=== PATIENT | female | born 1965 | race Caucasian/White ===

== ENCOUNTER 2016-04-29 01:55 | Emergency (ER) | payer BC ==
[2016-04-29] MEDS ORDERED: ASPIRIN 81 MG TABLET, CHEWABLE PO ONE (02:04)
[2016-04-29] MEDS ORDERED: NITROGLYCERIN 2% OINTMENT 1 GM PACKET TP ONE (02:34)
[2016-04-29 02:44] LABS: ABSOLUTE BASOPHILS # (AUTO) 0.1 10^3/uL (0.0-0.2); ABSOLUTE EOSINOPHILS # (AUTO) 0.1 10^3/uL (0.0-0.6); ABSOLUTE LYMPHOCYTES (AUTO) 3.9 10^3/uL (0.5-4.7); ABSOLUTE MONOCYTES (AUTO) 0.5 10^3/uL (0.1-1.4); ABSOLUTE NEUT (AUTO) 3.7 10^3/uL (1.7-8.2); BASOPHILS % (AUTO) 0.7 % (0-2); EOSINOPHILS % (AUTO) 1.3 % (0-6); HEMATOCRIT 40.5 % (36.0-47.0); HGB HCT DIFFERENCE 1.5; LYMPHOCYTES % (AUTO) 46.8 % (13-45); MEAN CORPUSCULAR HEMOGLOBIN 31.7 pg (27.0-33.4); MEAN CORPUSCULAR HGB CONC 34.6 g/dL (32.0-36.0); MEAN CORPUSCULAR VOLUME 92 fl (80-97); MONOCYTES % (AUTO) 5.9 % (3-13); RED BLOOD COUNT 4.42 10^6/uL (3.72-5.28); RED CELL DISTRIBUTION WIDTH 12.9 % (11.5-14.0); SEGMENTED NEUTROPHILS % (AUTO) 45.3 % (42-78); WHITE BLOOD COUNT 8.3 10^3/uL (4.0-10.5)
[2016-04-29 02:57] LABS: ALANINE AMINOTRANSFERASE 79 U/L (9-52); ALBUMIN 4.2 g/dL (3.5-5.0); ALKALINE PHOSPHATASE 115 U/L (38-126); ANION GAP 13 (5-19); ASPARTATE AMINO TRANSFERASE 55 U/L (14-36); BILIRUBIN,TOTAL 0.6 mg/dL (0.2-1.3); BLOOD UREA NITROGEN 20 mg/dL (7-20); CALCIUM 9.6 mg/dL (8.4-10.2); CARBON DIOXIDE 26 mmol/L (22-30); CHLORIDE 106 mmol/L (98-107); CREATINE KINASE 78 U/L (30-135); CREATININE RESULT 0.86 mg/dL (0.52-1.25); GLUCOSE 94 mg/dL (75-110); SODIUM 144.5 mmol/L (137-145); TOTAL PROTEIN 7.3 g/dL (6.3-8.2)
[2016-04-29 03:09] LABS: CREATINE KINASE MB 0.39 ng/mL (<4.55); TROPONIN I < 0.012 ng/mL
--- NOTE | 2016-04-29 03:19 | ER Document Report ---
ED Cardiac - General Chief Complaint: Chest Pain Stated Complaint: CHEST PAIN Notes: Patient is a 50-year-old female that comes emergency department for chief complaint of chest pain that began at about 4 PM today, she states that chest pain has been intermittent, feels like a mild discomfort in the left side of her chest, she states that she did have some radiation down the left arm. Patient denies vomiting, cough, injury. Patient states symptoms started when she got up from bed, worsened when she was at work today. Patient smokes, denies any hypertension, diabetes, hyperlipidemia, or personal history of any medical problems. Patient does have a family history of father with an PR. TRAVEL OUTSIDE OF THE [place] IN LAST 30 DAYS: No - Related Data Allergies/Adverse Reactions: No Known Allergies Allergy (Unverified 04/29/16 03:37) Past Medical History - General Information source: Patient - Social History Smoking Status: Current Every Day Smoker Smoking Education Provided: Yes - <3 min Frequency of alcohol use: Occasional Drug Abuse: None Lives with: Spouse/Significant other Family History: Reviewed & Not Pertinent Patient has suicidal ideation: No Patient has homicidal ideation: No - Medical History Medical History: Negative Renal/ Medical History: Denies: Hx Peritoneal Dialysis Surgical Hx: Negative - Immunizations Hx Diphtheria, Pertussis, Tetanus Vaccination: Yes Review of Systems - Review of Systems Constitutional: No symptoms reported EENT: No symptoms reported Cardiovascular: See HPI Respiratory: No symptoms reported Gastrointestinal: No symptoms reported Genitourinary: No symptoms reported Female Genitourinary: No symptoms reported Musculoskeletal: No symptoms reported Skin: No symptoms reported Hematologic/Lymphatic: No symptoms reported Neurological/Psychological: No symptoms reported Physical Exam - Vital signs Vitals: Temp 97.5 F 04/29/16 02:01 Interpretation: Normal - General General appearance: Appears well, Alert In distress: None - HEENT Head: Normocephalic, Atraumatic Eyes: Normal Conjunctiva: Normal Extraocular movements intact: Yes Eyelashes: Normal Pupils: PERRL Sinus: Normal Nasal: Normal Mouth/Lips: Normal Mucous membranes: Normal Pharynx: Normal Neck: Normal - Respiratory Respiratory status: No respiratory distress Chest status: Nontender Breath sounds: Normal. No: Decreased air movement, Wheezing Chest palpation: Normal - Cardiovascular Rhythm: Regular. No: Tachycardia Heart sounds: Normal auscultation, S1 appreciated, S2 appreciated Murmur: No - Abdominal Inspection: Normal Distension: No distension Bowel sounds: Normal Tenderness: Nontender Organomegaly: No organomegaly - Back Back: Normal, Nontender - Extremities General upper extremity: Normal inspection, Nontender, Normal color, Normal ROM , Normal temperature General lower extremity: Normal inspection, Nontender, Normal color, Normal ROM , Normal temperature, Normal weight bearing. No: Sameer's sign - Neurological Neuro grossly intact: Yes Cognition: Normal Orientation: AAOx4 [place] Coma Scale Eye Opening: Spontaneous [place] Coma Scale Verbal: Oriented Vasquez Coma Scale Motor: Obeys Commands [place] Coma Scale Total: 15 Speech: Normal Motor strength normal: LUE, RUE, LLE, RLE Sensory: Normal - Psychological Associated symptoms: Normal affect, Normal mood - Skin Skin Temperature: Warm Skin Moisture: Dry Skin Color: Normal Course - Re-evaluation Re-evalutation: EKG shows sinus rhythm, OK interval is slightly elongated consistent with first- degree heart block. No ST segment abnormalities or T-wave inversions in consecutive leads. Chest x-ray is unremarkable. CBC, CMP generally unremarkable with only very mildly elevated LFTs. 2 sets of negative cardiac enzymes performed. On reexamination patient did have some mild discomfort in her left arm, given nitroglycerin as well, symptoms resolved. I did discuss admission for chest pain rule out, patient declines, patient does state that she would like a referral, patient will be referred to both primary care and cardiology, patient states that she will leave but that she will return if she develops return or any worsening symptoms. Given work release. Patient does have medical experience, states that she will return for any concerning symptoms. - Vital Signs Vital signs: Temp Pulse Resp BP Pulse Ox 97.5 F 16 102/65 97 04/29/16 02:01 04/29/16 06:00 04/29/16 06:00 04/29/16 06:00 - Laboratory Result Diagrams: 04/29/16 02:34 04/29/16 02:34 Laboratory results interpreted by me: 04/29/16 04/29/16 02:34 02:34 Lymphocytes % 46.8 H AST 55 H ALT 79 H Discharge - Discharge Clinical Impression: Chest pain Qualifiers: Chest pain type: unspecified Qualified Code(s): R07.9 - Chest pain, unspecified Condition: Stable Disposition: HOME, SELF-CARE Additional Instructions: The cause of your chest pain today is unclear. Please follow-up with post primary care and cardiology referral for additional management and workup. Stop smoking. Return to the emergency department immediately for any return or worsening symptoms. Forms: Return to Work Referrals: MONE MANCIA MD [NO LOCAL MD] - Follow up as needed ELODIA KERN MD [ACTIVE STAFF] - Follow up as needed MANUEL RUBIO MD [ACTIVE STAFF] - Follow up as needed
[2016-04-29 07:04] VITALS: BP 102/65
--- NOTE | 2016-04-29 11:35 | EKG REPORT ---
SEVERITY:- ABNORMAL ECG - SINUS RHYTHM FIRST DEGREE AV BLOCK : Confirmed by: Delia Bhagat 29-Apr-2016 11:34:42
== END 2016-04-29 07:40 | disposition home or self-care (01) ==
LOC: ER 01:55
DX: R07.9 Chest pain, unspecified (principal); F17.200 Nicotine dependence, unspecified, uncomplicated; Z71.6 Tobacco abuse counseling; Z82.49 Family history of ischemic heart disease and other diseases of the circulatory system; R79.89 Other specified abnormal findings of blood chemistry
CPT/HCPCS: 36415; 71010; 80053; 82550; 82553; 84484; 85025; 93005; 93010; 99285

== ENCOUNTER → 2016-05-13 | Outpatient (CLI) | payer OTHER | LOC: SP 12:35 | PROVIDERS: ATTEND Orthopaedic Surgery | DX: M79.661 Pain in right lower leg (principal) | CPT/HCPCS: 93971 ==